=== PATIENT | male | born 1980 | race Caucasian/White ===

== ENCOUNTER 2021-04-10 18:17 | Inpatient (IN) | payer SELFPAY ==
[~2021-04-10] VITALS: Ht 177.8 cm; Wt 75.8 kg
--- NOTE | 2021-04-10 18:46 | PHYS DOC ---
Past History Past Medical History: Alcoholism, GERD, Pancreatitis Past Surgical History: No Surgical History Alcohol Use: Heavy General Adult EDM: Chief Complaint: ABDOMINAL PAIN HPI: HPI: "... I think I have any pancreatitis flare... I had a lot about the last year or so... Think about 10 ER visits mainly at ... Pain recurrent pancreatitis episodes in the last 2 years it was started because of alcohol abuse.. " Patient is a 40 year old male who presents with above hx and complaints of epigastric abdomen pain. Patient rates pain as 8-10 out of 10. Pain radiates epigastric to mid back. Similar to prior episodes of acute onset of pancreatitis. Patient did drink alcohol yesterday which he thinks it started his current bout of abdomen pain and suspect pancreatitis. Patient only follows for all his care. No history of bad food intake. No recent travel. No specific ill contacts. Did complete a Covid vaccination x1 on September on March 26. Is due for a second shot this month-with Moderna. No history of trauma. Review of Systems: Review of Systems: Constitutional: Denies fever or chills Eyes: Denies change in visual acuity HENT: Denies nasal congestion or sore throat Respiratory: Denies cough or shortness of breath Cardiovascular: Denies chest pain or edema GI: Complains of severe epigastric abdominal pain, nausea, vomiting,. Denies bloody stools or diarrhea : Denies dysuria Musculoskeletal: Denies back pain or joint pain Integument: Denies rash Neurologic: Denies headache, focal weakness or sensory changes Endocrine: Denies polyuria or polydipsia Lymphatic: Denies swollen glands Psychiatric: Denies depression or anxiety Family History: Family History: Noncontributory to presentation Current Medications: Current Meds: See Nursing for home meds Allergies: Allergies: Allergies Coded Allergies Type Severity Reaction Last Updated Verified No Known Drug Allergies 04/10/21 No Physical Exam: PE: Constitutional: in acute distress, non-toxic appearance. [] HENT: Normocephalic, atraumatic, bilateral external ears normal, oropharynx moist, no oral exudates, nose normal. [] Eyes: PERRLA, EOMI, conjunctiva normal, no discharge. [] Neck: Normal range of motion, no tenderness, supple, no stridor. [] Cardiovascular: Tachycardia heart rate regular rhythm, no murmur [] Lungs & Thorax: Bilateral breath sounds equal apex with scattered wheezes on auscultation [] Abdomen: Bowel sounds normal, soft, epigastric tenderness, no masses, no pulsatile masses. Rebound epigastric Skin: Warm, dry, no erythema, no rash. [] Back: No tenderness, no CVA tenderness. [] Extremities: No tenderness, no cyanosis, no clubbing, ROM intact, no edema. No cording appreciated Neurologic: Alert and oriented X 3, normal motor function, normal sensory function, no focal deficits noted. [] Psychologic: Affect anxious, judgement normal, mood normal. [] Current Patient Data: Vital Signs: Vital Signs Date Time Temp Pulse Resp B/P (MAP) Pulse Ox O2 Delivery O2 Flow Rate FiO2 04/10/21 18:36 98.5 109 16 131/97 97 Room Air EKG: EKG: [] Radiology/Procedures: Radiology/Procedures: [][address] [address] IMAGING REPORT Signed PATIENT: BROOKS DURÁN ACCOUNT: [id number] : 1980 LOCATION: ER AGE: 40 SEX: M EXAM STATUS: REG ER ORD. PHYSICIAN: RUKHSANA CYR MD REASON: Abdomen pain, nausea, Hx. pancreatitis Omni 300 75cc PROCEDURE: CT ABD PELV W/ORAL&IV CONTRAST Exam: CT abdomen and pelvis with contrast INDICATION: Abdominal pain, nausea TECHNIQUE: Sequential axial images through the abdomen and pelvis obtained witho ut IV contrast. Sagittal and coronal reformatted images were reconstructed from the axial data and reviewed. Exposure: One or more of the following in the visualized dose reduction techniques were utilized for this examination: 1. Automated exposure control 2. Adjustment of the MA and/or KV according to patient size 3. Use of iterative of reconstructive technique Comparisons: None FINDINGS: Heart size is normal. No pericardial effusion. Visualized lung bases are clear. No pleural effusion. Mild diffuse hepatic steatosis. Spleen, gallbladder and adrenals are unremarkable. There is numerous calcifications within the pancreas with mild adjacent fat stranding. Kidneys demonstrate symmetric enhancement. No perinephric inflammation or hydronephrosis. No renal or ureteral calculi are identified. Bladder is partially distended and not well evaluated. Prostate is not enlarged. Large and small bowel are unremarkable. Appendix is normal. No free abdominal air or fluid. No obstruction. Abdominal aorta has normal course and caliber. Abdominal vasculature is patent. No enlarged abdominal lymph nodes are identified. No suspicious osseous lesions or acute fractures. IMPRESSION: 1. Findings likely related to acute on chronic pancreatitis. No peripancreatic fluid collection. 2. Mild diffuse hepatic steatosis. Electronically signed by: Harshil Lowry MD (04/10/2021 8:13 PM) [facility] DICTATED AND SIGNED BY: HARSHIL LOWRY MD DATE: 04/10/212007 CC: RUKHSANA CYR MD; PCP,NO ~MTH0 0 Heart Score: C/O Chest Pain: N/A Risk Factors: Risk Factors: DM, Current or recent (<one month) smoker, HTN, HLP, family history of CAD, obesity. Risk Scores: Score 0 - 3: 2.5% MACE over next 6 weeks - Discharge Home Score 4 - 6: 20.3% MACE over next 6 weeks - Admit for Clinical Observation Score 7 - 10: 72.7% MACE over next 6 weeks - Early Invasive Strategies Course & Med Decision Making: Course & Med Decision Making Pertinent Labs and Imaging studies reviewed. (See chart for details) Discussed presentation, testing and treatment plan with Will admit for further pain control and hydration. Impression: 1. Abdomen pain 2. Hx. Pancreatitis- Acute on Chronic-exacerbation 3. Alcohol Abuse 138 [] Dragon Disclaimer: Dragon Disclaimer: This electronic medical record was generated, in whole or in part, using a voice recognition dictation system. Departure Departure: Referrals: PCP,NO (PCP) Shaneka Disclaimer This chart was dictated in whole or in part using Voice Recognition software in a busy, high-work load, and often noisy Emergency Department environment. It may contain unintended and wholly unrecognized errors or omissions. RUKHSANA CYR MD Apr 10, 2021 18:46
[2021-04-10] MEDS ORDERED: IOHEXOL 300 MG/ML 75 ML VIAL. IV ONE (19:00)
[2021-04-10] MEDS ORDERED: ONDANSETRON PF 4 MG/2 ML VIAL. IVP ONE (19:00)
[2021-04-10] MEDS ORDERED: FAMOTIDINE 20 MG/2 ML VIAL IVP ONE (19:00)
[2021-04-10] MEDS ORDERED: MORPHINE SULFATE 10 MG/ML SYRINGE. SQ ONE ×2 (19:00→21:15)
[2021-04-10] MEDS ORDERED: IV RINGERS SOLUTION,LACTATED 1,000 ML IV SCH (19:00)
[2021-04-10] MEDS ORDERED: KETOROLAC 30 MG/ML VIAL. IVP ONE (19:00)
[2021-04-10] MEDS ORDERED: IOHEXOL 240 MG/ML 50ML VIAL. ONE (19:01)
[2021-04-10 19:17] LABS: BASO # 0.1 x10^3/uL (0.0-0.2); BASO % 1 % (0-3); EOS # 0.1 x10^3/uL (0.0-0.7); EOS % 1 % (0-3); HEMATOCRIT 46.1 % (39.0-53.0); HEMOGLOBIN 15.7 g/dL (13.0-17.5); LYMPH # 1.8 x10^3/uL (1.0-4.8); LYMPH % 16 % (24-48); MEAN CORPUSCULAR HEMOGLOBIN 33 pg (25-35); MEAN CORPUSCULAR HGB CONC 34 g/dL (31-37); MEAN CORPUSCULAR VOLUME 96 fL (79-100); MONO # 0.7 x10^3/uL (0.0-1.1); MONO % 6 % (0-9); NEUT # 8.6 x10^3uL (1.8-7.7); NEUT % 76 % (31-73); PLATELET COUNT 260 x10^3/uL (140-400); RED BLOOD COUNT 4.81 x10^6/uL (4.30-5.70); RED CELL DISTRIBUTION WIDTH 15.1 % (11.5-14.5); WHITE BLOOD COUNT 11.3 x10^3/uL (4.0-11.0)
--- NOTE | 2021-04-10 19:18 | RAD ---
INDICATION: Reason: Abdomen pain, n/v, hx pancreatitis / Spl. Instructions: / History: COMPARISON: None. IMPRESSION: 3 views of the chest and abdomen obtained. No focal airspace consolidation to suggest pneumonia. Card iac silhouette is unremarkable. There is some degenerative changes the spine. Degenerative changes of the hips. Ossific density seen adjacent to the left hip with chronic appearance. Nonspecific bowel g as pattern with a couple of mildly prominent loops of air-filled small bowel seen measuring up to abo ut 31 mm. There is some high density foci projecting over the upper abdomen which could be from pancr eatic calcifications with one possible cause including sequela of chronic pancreatitis. Also possible that this is secondary to calcifications within the soft tissues or bowel content. Electronically signed by: Bobby Payne MD (04/10/2021 7:16 PM) [id number]
[2021-04-10 19:30] LABS: CALCIUM 8.5 mg/dL (8.5-10.1); CREATININE 0.7 mg/dL (0.7-1.3); GFR 124.9; POTASSIUM 4.7 mmol/L (3.5-5.1)
[2021-04-10 19:37] LABS: ALBUMIN 3.5 g/dL (3.4-5.0); DIRECT BILIRUBIN 0.1 mg/dL (0.0-0.2); TOTAL BILIRUBIN 0.6 mg/dL (0.2-1.0); TOTAL PROTEIN 7.4 g/dL (6.4-8.2)
[2021-04-10 19:59] LABS: BARBITURATES NEG (NEG); BENZODIAZEPINES NEG (NEG); CANNABINOIDS POS (NEG); COCAINE NEG (NEG); METHADONE NEG (NEG); OPIATES NEG (NEG); PHENCYCLIDINE NEG (NEG)
[2021-04-10 20:09] LABS: AMPHETAMINE/METHAMPHETAMINE NEG (NEG)
--- NOTE | 2021-04-10 20:16 | RAD ---
Exam: CT abdomen and pelvis with contrast INDICATION: Abdominal pain, nausea TECHNIQUE: Sequential axial images through the abdomen and pelvis obtained without IV contrast. Sagit cadecne and coronal reformatted images were reconstructed from the axial data and reviewed. Exposure: One or more of the following in the visualized dose reduction techniques were utilized for this examination: 1. Automated exposure control 2. Adjustment of the MA and/or KV according to patient size 3. Use of iterative of reconstructive technique Comparisons: None FINDINGS: Heart size is normal. No pericardial effusion. Visualized lung bases are clear. No pleural effusion. Mild diffuse hepatic steatosis. Spleen, gallbladder and adrenals are unremarkable. There is numerous calcifications within the pancreas with mild adjacent fat stranding. Kidneys demonstrate symmetric enhancement. No perinephric inflammation or hydronephrosis. No renal or ureteral calculi are identified. Bladder is partially distended and not well evaluated. Prostate is not enlarged. Large and small bowel are unremarkable. Appendix is normal. No free abdominal air or fluid. No obstru ction. Abdominal aorta has normal course and caliber. Abdominal vasculature is patent. No enlarged abdominal lymph nodes are identified. No suspicious osseous lesions or acute fractures. IMPRESSION: 1. Findings likely related to acute on chronic pancreatitis. No peripancreatic fluid collection. 2. Mild diffuse hepatic steatosis. Electronically signed by: Harshil Grier MD (04/10/2021 8:13 PM) [facility]
[2021-04-10 20:28] LABS: CLARITY,URINE CLEAR; COLOR,URINE YELLOW
[2021-04-10 20:29] LABS: BACTERIA,URINE 0 /HPF (0-FEW); BILIRUBIN,URINE NEG (NEG); GLUCOSE,URINE NEG (NEG); NITRITE,URINE NEG (NEG); RBC,URINE 0 /HPF (0-2); UROBILINOGEN,URINE 0.2 mg/dL (0.2 mg/dL); WBC,URINE 0 /HPF (0-4)
[2021-04-10] MEDS ORDERED: ACETAMINOPHEN 325 MG TABLET PO PRN (23:15)
[2021-04-10] MEDS ORDERED: ONDANSETRON PF 4 MG/2 ML VIAL. IVP PRN (23:15)
[2021-04-10] MEDS ORDERED: SUCRALFATE 1 GM TABLET. PO ONE (23:47)
[2021-04-10] MEDS ORDERED: MULTIVITAMIN with MINERAL TABLET. ONE (23:47)
[2021-04-10] MEDS ORDERED: MAGNESIUM HYDROXIDE 2,400 MG/30 ML ORAL.SUSP. ONE (23:47)
[2021-04-10] MEDS ORDERED: FAMOTIDINE 20 MG/2 ML VIAL ONE (23:48)
[2021-04-10] MEDS: SUCRALFATE 1 GM TABLET. PO SCH (23:58)
[2021-04-10] MEDS: MORPHINE SULFATE 10 MG/ML SYRINGE. SQ PRN (23:58)
[2021-04-11] VITALS (7 sets, daily range): BP systolic 141–156; BP diastolic 91–110
[2021-04-11] MEDS: IV RINGERS SOLUTION,LACTATED 1,000 ML IV SCH ×2 (00:02→19:38)
[2021-04-11] MEDS: MORPHINE SULFATE 10 MG/ML SYRINGE. SQ PRN (03:25)
[2021-04-11] MEDS ORDERED: MORPHINE SULFATE 10 MG/ML SYRINGE. SQ ONE (03:30)
[2021-04-11 08:16] LABS: BASO # 0.1 x10^3/uL (0.0-0.2); BASO % 1 % (0-3); EOS # 0.1 x10^3/uL (0.0-0.7); EOS % 1 % (0-3); HEMATOCRIT 38.3 % (39.0-53.0); HEMOGLOBIN 13.2 g/dL (13.0-17.5); LYMPH # 1.6 x10^3/uL (1.0-4.8); LYMPH % 26 % (24-48); MEAN CORPUSCULAR HEMOGLOBIN 33 pg (25-35); MEAN CORPUSCULAR HGB CONC 35 g/dL (31-37); MEAN CORPUSCULAR VOLUME 96 fL (79-100); MONO # 0.6 x10^3/uL (0.0-1.1); MONO % 10 % (0-9); NEUT # 3.7 x10^3uL (1.8-7.7); NEUT % 61 % (31-73); PLATELET COUNT 198 x10^3/uL (140-400); WHITE BLOOD COUNT 6.1 x10^3/uL (4.0-11.0)
[2021-04-11 08:23] LABS: CALCIUM 7.9 mg/dL (8.5-10.1); CREATININE 0.8 mg/dL (0.7-1.3); GFR 107.1; POTASSIUM 3.9 mmol/L (3.5-5.1)
[2021-04-11] MEDS ORDERED: MORPHINE SULFATE 10 MG/ML SYRINGE. IV ONE ×3 (08:30→15:00)
[2021-04-11] MEDS ORDERED: MAGNESIUM HYDROXIDE 2,400 MG/30 ML ORAL.SUSP. PO SCH (09:00)
[2021-04-11] MEDS ORDERED: PRENATAL MULTIVITAMIN TABLET. PO SCH (09:00)
[2021-04-11] MEDS ORDERED: MORPHINE SULFATE 10 MG/ML SYRINGE. IV PRN (15:30)
[2021-04-11] MEDS: SUCRALFATE 1 GM TABLET. PO SCH ×2 (15:46→19:39)
[2021-04-11] MEDS: FAMOTIDINE 20 MG/2 ML VIAL IVP SCH ×2 (15:46→19:39)
[2021-04-11] MEDS ORDERED: cloNIDine HCL 0.1 MG TABLET PO PRN ×2 (19:15)
--- NOTE | 2021-04-11 19:48 | NUR ---
PT ADMITTED TO [facility] VIA EMS PRIOR TO SHIFT CHANGE. PT THEN STORMED OUT OF ROOM AND APPROACHED NURSING STATION WHERE PT STATED "I AM JUST GOING TO HEAD OUT OF HERE". CALLED. AMA PAPER WORK SIGNED. SECURITY PAGED. IV DISCONTINUED. PT AMBULATED OFF UNIT.
[2021-04-11] MEDS ORDERED: CLOBETASOL EMOLLIENT 0.05% TOPICAL CREAM 15GM TUBE. TP SCH (21:00)
--- NOTE | 2021-04-11 23:31 | HP ---
ADMIT DATE: 04/10/2021 ATTENDING PHYSICIAN: Dr. Jasmine. CHIEF COMPLAINT: Abdominal pain. HISTORY OF PRESENT ILLNESS: The patient is a 40-year-old gentleman who is a chronic alcoholic. He has had multiple episodes of pancreatitis. He has abdominal pain. He had ED workup, which showed evidence of recurrent pancreatitis. He is admitted for symptomatic control and pain control. He was given morphine and ondansetron. His last drink was 2 days prior to coming in. PAST MEDICAL HISTORY: Significant for multiple admissions. He had mainly admission to [facility]. No trauma. No recent bad food intake. He has had COVID vaccination, one time in September. CURRENT MEDICATIONS: None. ALLERGIES: No known drug allergies. SURGICAL HISTORY: None. FAMILY HISTORY: Noncontributory. REVIEW OF SYSTEMS: Significant for localized abdominal pain, nausea, and no hematemesis. All other systems were reviewed and turned out to be negative. PHYSICAL EXAMINATION: VITAL SIGNS: When I saw him, his blood pressure was 141/101, pulse 80 and regular. He was afebrile. Oxygen saturation 97% on room air. HEENT: Head is without trauma. Pupils are reactive. Sclerae nonicteric. Oropharynx is clear. NECK: Supple, no bruits identified. LUNGS: Good breath sounds. CARDIOVASCULAR: Showed regular heart tones. No gallop. ABDOMEN: Diffuse tenderness on deep palpation. There is no guarding or rebound tenderness. Bowel sounds are hypoactive. No masses palpated. EXTREMITIES: Showed no cyanosis or edema. NEUROLOGIC: Focally intact. Speech is fluent. PERTINENT LABORATORY STUDIES: His hemoglobin was 15.7 g/dL with a white count of 11,300. Chemistry panel, electrolytes within normal range. Lipase level was 280, amylase 73, creatinine 0.7 mg percent. Abdominal series and CT abdomen showed acute on chronic pancreatitis, diffuse hepatic steatosis. There are numerous calcifications within the pancreas and mild adjacent fat stranding. ASSESSMENT: 1. A 40-year-old gentleman with alcoholic pancreatitis. 2. Chronic alcoholism. 3. Abdominal pain with nausea. 4. Dehydration. 5. Essential hypertension. PLAN: 1. Admit to the inpatient unit. 2. Pain and nausea control. 3. Gentle IV hydration. 4. We will advance diet as tolerated. WILMAR/BREN/SHUBHAM DR: WILMAR/mook TID: [id number]
--- NOTE | 2021-04-12 09:02 | DS ---
DATE OF DISCHARGE: 04/11/2021 ATTENDING PHYSICIAN: Dr. Jasmine. FINAL DISCHARGE DIAGNOSES: 1. Acute pancreatitis. 2. Chronic alcoholism. 3. Chronic pain syndrome. 4. Abdominal pain with nausea. 5. Dehydration. 6. Essential hypertension. HISTORY OF PRESENT ILLNESS: The patient is a 40-year-old gentleman, chronic alcoholic, multiple episodes of pancreatitis. He is still drinking up to 2 days before he showed up in the ER. He was admitted with acute pancreatitis. I did see him down in the ED. PHYSICAL EXAMINATION: Please see the dictated note. PERTINENT LABORATORY AND X-RAY STUDIES: On the database. COURSE IN THE HOSPITAL: The patient was admitted. He was given IV hydration, pain and nausea control. He did have to wait quite a long time In the ER because of bed availability. By the time he got up to the floor, he was not happy. Shortly after coming to the floor, he left against medical advice. NILO DR: Fausto TID: [id number]
== END 2021-04-11 19:52 | disposition left against medical advice (07) | DRG 440 ==
LOC: ER 18:17 → 1 SOUTH 23:05
PROVIDERS: ADMIT Internal Medicine; ATTEND Internal Medicine
DX: K85.20 Alcohol induced acute pancreatitis without necrosis or infection (principal); K21.9 Gastro-esophageal reflux disease without esophagitis; F10.20 Alcohol dependence, uncomplicated; E86.0 Dehydration; I10 Essential (primary) hypertension; G89.4 Chronic pain syndrome; K86.1 Other chronic pancreatitis; Z53.29 Procedure and treatment not carried out because of patient's decision for other reasons; Z20.822 Contact with and (suspected) exposure to COVID-19
CPT/HCPCS: 36415; 74022; 74177; 80048; 80076; 80307; 81001; 82150; 82550; 83690; 84484; 85025; 87426; 96361; 96374; 96375; G0238; G0480; J1885; J2060; J2270; J2405; J3490; J7120; Q9967; U0003; 99285-25

== ENCOUNTER 2021-04-14 06:49 | Emergency (ER) | payer SELFPAY ==
[2021-04-11 19:39] VITALS: BP 152/110
[~2021-04-14] VITALS: Ht 177.8 cm; Wt 75.8 kg
[2021-04-14] MEDS ORDERED: ONDANSETRON PF 4 MG/2 ML VIAL. IVP ONE (07:15)
[2021-04-14] MEDS ORDERED: IV NORMAL SALINE 1,000ML 1,000 ML IV ONE (07:15)
[2021-04-14 07:29] LABS: BASO # 0.1 x10^3/uL (0.0-0.2); BASO % 1 % (0-3); EOS # 0.1 x10^3/uL (0.0-0.7); EOS % 1 % (0-3); HEMATOCRIT 45.6 % (39.0-53.0); HEMOGLOBIN 15.6 g/dL (13.0-17.5); LYMPH # 1.2 x10^3/uL (1.0-4.8); LYMPH % 18 % (24-48); MEAN CORPUSCULAR HEMOGLOBIN 33 pg (25-35); MEAN CORPUSCULAR HGB CONC 34 g/dL (31-37); MEAN CORPUSCULAR VOLUME 96 fL (79-100); MONO # 1.1 x10^3/uL (0.0-1.1); MONO % 16 % (0-9); NEUT # 4.4 x10^3uL (1.8-7.7); NEUT % 65 % (31-73); PLATELET COUNT 260 x10^3/uL (140-400); RED BLOOD COUNT 4.75 x10^6/uL (4.30-5.70); RED CELL DISTRIBUTION WIDTH 15.3 % (11.5-14.5); WHITE BLOOD COUNT 6.9 x10^3/uL (4.0-11.0)
[2021-04-14] MEDS ORDERED: MORPHINE SULFATE 4 MG/ML DISP.SYRIN. IV ONE (07:30)
[2021-04-14 07:39] LABS: CALCIUM 8.9 mg/dL (8.5-10.1); CREATININE 0.8 mg/dL (0.7-1.3); GFR 107.1; POTASSIUM 4.1 mmol/L (3.5-5.1)
--- NOTE | 2021-04-14 07:40 | PHYS DOC ---
Past History Past Medical History: Alcoholism, GERD, Pancreatitis Past Surgical History: No Surgical History Alcohol Use: Heavy General Adult EDM: Chief Complaint: ABDOMINAL PAIN HPI: HPI: 40-year-old male presents with epigastric abdominal pain and vomiting. The patient has chronic pancreatitis. He did drink alcohol yesterday. He has poor pain his morning so he came emergency room. Patient was recently in this emergency room for pancreatitis admitted to the hospital. He reportedly left as soon as he got a hospital bed. Patient denies fever or chills. He has no other complaints. Review of Systems: Review of Systems: Constitutional: Denies fever or chills Eyes: Denies change in visual acuity HENT: Denies nasal congestion or sore throat Respiratory: Denies cough or shortness of breath Cardiovascular: Denies chest pain or edema GI: Epigastric abdominal pain, nausea, vomiting.Denies bloody stools or diarrhea : Denies dysuria Musculoskeletal: Denies back pain or joint pain Integument: Denies rash Neurologic: Denies headache, focal weakness or sensory changes Endocrine: Denies polyuria or polydipsia Lymphatic: Denies swollen glands Psychiatric: Denies depression or anxiety Current Medications: Current Meds: Current Medications Medications (Trade) Dose Ordered Sig/Mitesh Start Time Stop Time Status Last Admin Dose Admin Morphine Sulfate (Morphine 4mg Syringe) 4 mg 1X ONCE 04/14/21 07:30 04/14/21 07:36 DC Ondansetron HCl (Zofran) 4 mg 1X ONCE 04/14/21 07:15 04/14/21 07:36 DC Sodium Chloride 1,000 ml @ 1,000 mls/hr 1X ONCE 04/14/21 07:15 04/14/21 08:14 Allergies: Allergies: Allergies Coded Allergies Type Severity Reaction Last Updated Verified No Known Drug Allergies 04/10/21 No Physical Exam: PE: Constitutional: Well developed, well nourished, no acute distress, non-toxic appearance. [] HENT: Normocephalic, atraumatic, bilateral external ears normal, oropharynx moist, no oral exudates, nose normal. [] Eyes: PERRLA, EOMI, conjunctiva normal, no discharge. [] Neck: Normal range of motion, no tenderness, supple, no stridor. [] Cardiovascular:Heart rate regular rhythm, no murmur [] Lungs & Thorax: Bilateral breath sounds clear to auscultation [] Abdomen: Bowel sounds normal, soft, epigastric tenderness, no masses, no pulsatile masses. [] Skin: Warm, dry, no erythema, no rash. [] Back: No tenderness, no CVA tenderness. [] Extremities: No tenderness, no cyanosis, no clubbing, ROM intact, no edema. [] Neurologic: Alert and oriented X 3, normal motor function, normal sensory function, no focal deficits noted. [] Psychologic: Affect normal, judgement normal, mood normal. [] Current Patient Data: Labs: Laboratory Tests Test 04/14/21 07:13 White Blood Count 6.9 x10^3/uL (4.0-11.0) Red Blood Count 4.75 x10^6/uL (4.30-5.70) Hemoglobin 15.6 g/dL (13.0-17.5) Hematocrit 45.6 % (39.0-53.0) Mean Corpuscular Volume 96 fL (79-100) Mean Corpuscular Hemoglobin 33 pg (25-35) Mean Corpuscular Hemoglobin Concent 34 g/dL (31-37) Red Cell Distribution Width 15.3 % (11.5-14.5) H Platelet Count 260 x10^3/uL (140-400) Neutrophils (%) (Auto) 65 % (31-73) Lymphocytes (%) (Auto) 18 % (24-48) L Monocytes (%) (Auto) 16 % (0-9) H Eosinophils (%) (Auto) 1 % (0-3) Basophils (%) (Auto) 1 % (0-3) Neutrophils # (Auto) 4.4 x10^3uL (1.8-7.7) Lymphocytes # (Auto) 1.2 x10^3/uL (1.0-4.8) Monocytes # (Auto) 1.1 x10^3/uL (0.0-1.1) Eosinophils # (Auto) 0.1 x10^3/uL (0.0-0.7) Basophils # (Auto) 0.1 x10^3/uL (0.0-0.2) Vital Signs: Vital Signs Date Time Temp Pulse Resp B/P (MAP) Pulse Ox O2 Delivery O2 Flow Rate FiO2 04/14/21 06:55 97.9 95 16 159/112 96 Room Air EKG: EKG: [] Radiology/Procedures: Radiology/Procedures: [] Heart Score: C/O Chest Pain: N/A Risk Factors: Risk Factors: DM, Current or recent (<one month) smoker, HTN, HLP, family history of CAD, obesity. Risk Scores: Score 0 - 3: 2.5% MACE over next 6 weeks - Discharge Home Score 4 - 6: 20.3% MACE over next 6 weeks - Admit for Clinical Observation Score 7 - 10: 72.7% MACE over next 6 weeks - Early Invasive Strategies Course & Med Decision Making: Course & Med Decision Making Pertinent Labs and Imaging studies reviewed. (See chart for details) The patient's labs remarkable for elevated liver enzymes. His lipase is normal. I have given him morphine and Dilaudid. He has a long history of in the [employer] narcotic database of high-dose narcotic prescriptions. He does not denisse ear to have acute pancreatitis. He is stable for discharge at this time. I advised patient to stop drinking alcohol completely forever. [] Shaneka Disclaimer: Dragdeanna Disclaimer: This electronic medical record was generated, in whole or in part, using a voice recognition dictation system. Departure Departure: Impression: Primary Impression: Chronic pancreatitis due to acute alcohol intoxication Disposition: 01 HOME / SELF CARE / HOMELESS Condition: STABLE Referrals: PCP,NO (PCP) Patient Instructions: Acute Pancreatitis, [id number] DARRELL KENDALL DO Apr 14, 2021 07:40
[2021-04-14 07:45] LABS: ALBUMIN 3.4 g/dL (3.4-5.0); ALBUMIN/GLOBULIN RATIO 0.8 (1.0-1.7); TOTAL BILIRUBIN 0.9 mg/dL (0.2-1.0); TOTAL PROTEIN 7.9 g/dL (6.4-8.2)
[2021-04-14] MEDS ORDERED: HYDROmorphone PF 1 MG/ML DISP.SYRIN IVP ONE (08:15)
[2021-04-14] MEDS ORDERED: diphenhydrAMINE 50 MG/ML VIAL IVP ONE (08:15)
[2021-04-14] MEDS ORDERED: diphenhydrAMINE 50 MG/ML VIAL ONE (08:38)
== END 2021-04-14 10:08 | disposition home or self-care (01) ==
LOC: ER 06:49
DX: K86.0 Alcohol-induced chronic pancreatitis (principal); F10.229 Alcohol dependence with intoxication, unspecified; K21.9 Gastro-esophageal reflux disease without esophagitis; Y90.9 Presence of alcohol in blood, level not specified
CPT/HCPCS: 36415; 80053; 83690; 85025; 96361; 96374; 96375; 99284; J1170; J1200; J2270; J2405; J7030

== ENCOUNTER 2021-04-17 19:27 | Emergency (ER) | payer SELFPAY ==
[~2021-04-17] VITALS: Ht 177.8 cm; Wt 75.8 kg
[2021-04-17] MEDS ORDERED: ONDANSETRON PF 4 MG/2 ML VIAL. IVP ONE (20:45)
[2021-04-17] MEDS ORDERED: IV RINGERS SOLUTION,LACTATED 1,000 ML IV ONE (20:45)
[2021-04-17] MEDS ORDERED: FAMOTIDINE 20 MG/2 ML VIAL IVP ONE (20:45)
[2021-04-17 21:29] LABS: BASO % 1 % (0-3); EOS # 0.1 x10^3/uL (0.0-0.7); EOS % 1 % (0-3); HEMOGLOBIN 13.9 g/dL (13.0-17.5); LYMPH # 1.1 x10^3/uL (1.0-4.8); LYMPH % 15 % (24-48); MEAN CORPUSCULAR HEMOGLOBIN 33 pg (25-35); MEAN CORPUSCULAR HGB CONC 34 g/dL (31-37); MEAN CORPUSCULAR VOLUME 97 fL (79-100); MONO # 0.9 x10^3/uL (0.0-1.1); MONO % 12 % (0-9); NEUT # 5.5 x10^3uL (1.8-7.7); NEUT % 72 % (31-73); PLATELET COUNT 274 x10^3/uL (140-400); RED BLOOD COUNT 4.23 x10^6/uL (4.30-5.70); RED CELL DISTRIBUTION WIDTH 14.6 % (11.5-14.5); WHITE BLOOD COUNT 7.7 x10^3/uL (4.0-11.0)
[2021-04-17 21:36] LABS: CALCIUM 8.8 mg/dL (8.5-10.1); CREATININE 0.7 mg/dL (0.7-1.3); GFR 124.9; POTASSIUM 3.7 mmol/L (3.5-5.1)
[2021-04-17 21:41] LABS: ALBUMIN 3.3 g/dL (3.4-5.0); ALBUMIN/GLOBULIN RATIO 0.9 (1.0-1.7); TOTAL BILIRUBIN 0.7 mg/dL (0.2-1.0); TOTAL PROTEIN 6.9 g/dL (6.4-8.2)
--- NOTE | 2021-04-17 22:03 | PHYS DOC ---
Past History Past Medical History: Alcoholism, GERD, Pancreatitis (FLORES LUTHER) Past Surgical History: No Surgical History (FLORES LUTHER) Alcohol Use: Heavy (FLORES LUTHER) General Adult EDM: Chief Complaint: ABDOMINAL PAIN Problems: (1) Abdominal pain (FLORES LUTHER) HPI: HPI: Patient is a 40 year old male with history of alcoholism and pancreatitis who presents with abdominal pain, nausea, vomiting, diarrhea for the past few days. Patient states he visited the emergency department 3 days ago for the same complaints. He he states he was discharged home because his "enzymes were not high enough to stay." He rates his pain 9/10 in his central abdomen radiating to his back and describes as throbbing in nature. He states that his heart feels like it is racing, because he is "detoxing" from alcohol. Patient denies blood in his emesis or stool. He denies chest pain, shortness of breath, cough, dysuria, hematuria. Patient has no other complaints at this time (FLORES LUTHER) Review of Systems: Review of Systems: ROS negative except as mentioned in HPI. (FLORES LUTHER) Current Medications: Current Meds: Current Medications Medications (Trade) Dose Ordered Sig/Mitesh Start Time Stop Time Status Last Admin Dose Admin Famotidine (Pepcid Vial) 20 mg 1X ONCE 04/17/21 20:45 04/17/21 20:57 DC 04/17/21 20:52 20 MG Fentanyl Citrate (Fentanyl 2ml Vial) 50 mcg 1X ONCE 04/17/21 22:00 04/17/21 22:01 Lactated Ringer's 1,000 ml @ 0 mls/hr 1X ONCE 04/17/21 20:45 04/17/21 20:57 DC 04/17/21 20:52 1,000 MLS/HR Ondansetron HCl (Zofran) 8 mg 1X ONCE 04/17/21 20:45 04/17/21 20:57 DC 04/17/21 20:53 8 MG (FLORES LUTHER) Allergies: Allergies: Allergies Coded Allergies Type Severity Reaction Last Updated Verified No Known Drug Allergies 04/10/21 No (FLORES LUTHER) Physical Exam: PE: Constitutional: Patient is hunched over in the bed, holding his abdomen with his arm. He is in moderate distress secondary to pain. Well developed, well nourished, non-toxic appearance. [] Cardiovascular: Heart rate regular rhythm, no murmur [] Lungs & Thorax: Bilateral breath sounds clear to auscultation [] Abdomen: Abdomen is diffusely tender in the upper 2 quadrants. Bowel sounds normal, soft, no masses, no pulsatile masses. [] Skin: Diaphoretic. Warm, no erythema, no rash. [] Back: No tenderness, no CVA tenderness. [] Extremities: No tenderness, no cyanosis, no clubbing, ROM intact, no edema. [] Neurologic: Alert and oriented X 3, normal motor function, normal sensory function, no focal deficits noted. [] (FLORES LUTHER) Current Patient Data: Labs: Laboratory Tests Test 04/17/21 21:10 White Blood Count 7.7 x10^3/uL (4.0-11.0) Red Blood Count 4.23 x10^6/uL (4.30-5.70) Hemoglobin 13.9 g/dL (13.0-17.5) Hematocrit 41.0 % (39.0-53.0) Mean Corpuscular Volume 97 fL (79-100) Mean Corpuscular Hemoglobin 33 pg (25-35) Mean Corpuscular Hemoglobin Concent 34 g/dL (31-37) Red Cell Distribution Width 14.6 % (11.5-14.5) Platelet Count 274 x10^3/uL (140-400) Neutrophils (%) (Auto) 72 % (31-73) Lymphocytes (%) (Auto) 15 % (24-48) Monocytes (%) (Auto) 12 % (0-9) Eosinophils (%) (Auto) 1 % (0-3) Basophils (%) (Auto) 1 % (0-3) Neutrophils # (Auto) 5.5 x10^3uL (1.8-7.7) Lymphocytes # (Auto) 1.1 x10^3/uL (1.0-4.8) Monocytes # (Auto) 0.9 x10^3/uL (0.0-1.1) Eosinophils # (Auto) 0.1 x10^3/uL (0.0-0.7) Basophils # (Auto) 0.0 x10^3/uL (0.0-0.2) Sodium Level 140 mmol/L (136-145) Potassium Level 3.7 mmol/L (3.5-5.1) Chloride Level 104 mmol/L (98-107) Carbon Dioxide Level 25 mmol/L (21-32) Anion Gap 11 (6-14) Blood Urea Nitrogen 7 mg/dL (8-26) Creatinine 0.7 mg/dL (0.7-1.3) Estimated GFR (Cockcroft-Gault) 124.9 BUN/Creatinine Ratio 10 (6-20) Glucose Level 161 mg/dL (70-99) Calcium Level 8.8 mg/dL (8.5-10.1) Total Bilirubin 0.7 mg/dL (0.2-1.0) Direct Bilirubin 0.2 mg/dL (0.0-0.2) Aspartate Amino Transf (AST/SGOT) 20 U/L (15-37) Alanine Aminotransferase (ALT/SGPT) 41 U/L (16-63) Alkaline Phosphatase 364 U/L (46-116) Total Protein 6.9 g/dL (6.4-8.2) Albumin 3.3 g/dL (3.4-5.0) Albumin/Globulin Ratio 0.9 (1.0-1.7) Lipase 313 U/L (73-393) Ethyl Alcohol Level < 10 mg/dL (0-10) (FLORES LUTHER) EKG: EKG: [] (FLORES LUTHER) Radiology/Procedures: Radiology/Procedures: [] (FLORES LUTHER) Heart Score: C/O Chest Pain: No (FLORES LUTHER) Course & Med Decision Making: Course & Med Decision Making Pertinent Labs and Imaging studies reviewed. (See chart for details) Discussing pain control options with the patient, he reports that morphine does not alleviate his pain usually and requested Dilaudid. With the patient I agreed to try fentanyl, as he said that is has helped his pain in the past. After the patient's pain is controlled, going to a rehabilitation or detox facility was discussed with the patient and his chiropractor assistant. He agrees that that is the sort of treatment that he needs at this point in time. Patient requested Ativan from nursing staff. Due to alcohol withdrawal, I found it to be a reasonable request. Patient's girlfriend is no longer at bedside. On revisit, patient states that he threw up his Ativan pill, however there was minimal vomitus in the blue bag at bedside. I then discussed discharge home with plans to go to rehab versus admission for intractable pain with the patient. He states he is still in too much pain to go home or make it to the rehab facility. I will attempt a low dose of IM morphine and IV lorazepam, so that it will not be thrown up again. Patient appears significantly improved, and states he feels improved as well. He is no longer diaphoretic and is no longer retching. His girlfriend is on her way back, so when she arrives we will discuss the treatment plan with her as well. (FLORES LUTHER) Dragon Disclaimer: Dragon Disclaimer: This electronic medical record was generated, in whole or in part, using a voice recognition dictation system. (FLORES LUTHER) Departure Departure: Impression: Primary Impression: Alcohol withdrawal Qualified Codes: F10.230 - Alcohol dependence with withdrawal, uncomplicated Disposition: HOME / SELF CARE / HOMELESS Condition: STABLE Referrals: PCP,NO (PCP) Patient Instructions: Alcohol Withdrawal, [id number] Additional Instructions: [employer]. is available 03/03. Phone number: [phone] address: [address] [place] [id number] [address] Ondansetron (ONDANSETRON ODT) 4 Mg Tab.rapdis 1 TAB PO PRN Q6-8HRS for nausea, #16 TAB Take 1 tablet by mouth every 6-8 hours as needed for pain. Be sure to take at least 20 minutes prior to any other medications by mouth. Prov: FLORES LUTHER 04/18/21 Lorazepam (ATIVAN) 1 Mg Tablet 1 MG PO 1-2XD for alcohol withdrawal, #6 TAB Take 1 tablet by mouth at night to sleep. May take 2 if necessary. Prov: FLORES LUTHER 04/18/21 FLORES LUTHER Apr 17, 2021 22:03 RUKHSANA CYR MD Apr 20, 2021 18:21
[2021-04-17] MEDS ORDERED: LORazepam 1 MG TABLET PO ONE (23:15)
[2021-04-18] MEDS ORDERED: MORPHINE SULFATE 2 MG/ML DISP.SYRIN. IM ONE
[2021-04-18 00:31] VITALS: BP 143/90
[2021-04-18] MEDS ORDERED: LORA-254 PO (01:08)
[2021-04-18] MEDS ORDERED: ONDA4TAB12 PO (01:08)
== END 2021-04-18 01:15 | disposition home or self-care (01) ==
LOC: ER 19:27
DX: F10.239 Alcohol dependence with withdrawal, unspecified (principal); R11.2 Nausea with vomiting, unspecified; R19.7 Diarrhea, unspecified; R10.84 Generalized abdominal pain; K21.9 Gastro-esophageal reflux disease without esophagitis; Y90.0 Blood alcohol level of less than 20 mg/100 ml
CPT/HCPCS: 36415; 80053; 82248; 83690; 85025; 96361; 96372; 96374; 96375; 96376; 99285; G0480; J2060; J2270; J2405; J3010; J3490; J7120

== ENCOUNTER 2021-04-29 11:10 | Emergency (ER) | payer SELFPAY ==
[~2021-04-29] VITALS: Ht 177.8 cm; Wt 71.5 kg
[~2021-04-29 11:10] MED LIST: LORA-254 PO; ONDA4TAB12 PO
[2021-04-29] MEDS ORDERED: ONDANSETRON PF 4 MG/2 ML VIAL. IVP ONE (11:30)
[2021-04-29] MEDS ORDERED: IV NORMAL SALINE 1,000ML 1,000 ML IV SCH (11:30)
[2021-04-29 11:42] LABS: BASO # 0.1 x10^3/uL (0.0-0.2); BASO % 1 % (0-3); EOS % 0 % (0-3); HEMOGLOBIN 16.6 g/dL (13.0-17.5); LYMPH # 1.9 x10^3/uL (1.0-4.8); LYMPH % 25 % (24-48); MEAN CORPUSCULAR HEMOGLOBIN 33 pg (25-35); MEAN CORPUSCULAR HGB CONC 35 g/dL (31-37); MEAN CORPUSCULAR VOLUME 96 fL (79-100); MONO # 0.6 x10^3/uL (0.0-1.1); MONO % 8 % (0-9); NEUT # 5.1 x10^3uL (1.8-7.7); NEUT % 66 % (31-73); PLATELET COUNT 438 x10^3/uL (140-400); RED BLOOD COUNT 4.98 x10^6/uL (4.30-5.70); RED CELL DISTRIBUTION WIDTH 14.6 % (11.5-14.5); WHITE BLOOD COUNT 7.8 x10^3/uL (4.0-11.0)
[2021-04-29] MEDS ORDERED: IOHEXOL 300 MG/ML 75 ML VIAL. IV ONE (11:45)
[2021-04-29 11:46] LABS: CALCIUM 9.1 mg/dL (8.5-10.1); CREATININE 0.9 mg/dL (0.7-1.3); GFR 93.5; POTASSIUM 4.4 mmol/L (3.5-5.1)
--- NOTE | 2021-04-29 11:49 | PHYS DOC ---
Past History Past Medical History: Alcoholism, GERD, Pancreatitis (JANET LONDONO APRN) Past Surgical History: No Surgical History (JANET LONDOON APRN) Alcohol Use: None (JANET LONDONO APRN) General Adult EDM: Chief Complaint: ABDOMINAL PAIN HPI: HPI: Patient is a 40-year-old male who presents to the ER with epigastric pain that started last night. He rates the pain 9 out of 10. He describes it as a stabbing pain. No treatment prior to arrival. Patient is reporting nausea and vomiting. States that there is occasionally blood in his vomit. He denies any diarrhea, fevers. Patient has a history of alcoholism and pancreatitis. Patient states that he drank half of 1/5 of liquor yesterday. (JANET LONDONO APRN) Review of Systems: Review of Systems: 14 body systems of the review of systems have been reviewed. See HPI for pertinent positive and negative responses, otherwise all other systems are negative, nonpertinent or noncontributory (JANET LONDONO APRN) Current Medications: Current Meds: Current Medications Medications (Trade) Dose Ordered Sig/Mitesh Start Time Stop Time Status Last Admin Dose Admin Fentanyl Citrate (Fentanyl 2ml Vial) 50 mcg PRN Q15MIN PRN 04/29/21 11:30 04/30/21 11:29 Iohexol (Omnipaque 300 Mg/ml) 75 ml 1X ONCE 04/29/21 11:45 04/29/21 11:46 DC Ondansetron HCl (Zofran) 4 mg 1X ONCE 04/29/21 11:30 04/29/21 11:31 DC Sodium Chloride 1,000 ml @ 1,000 mls/hr Q1H 04/29/21 11:30 04/29/21 12:29 (JANET LONDONO APRN) Allergies: Allergies: Allergies Coded Allergies Type Severity Reaction Last Updated Verified No Known Drug Allergies 04/10/21 No (JANET LONDONO APRN) Physical Exam: PE: Constitutional: Well developed, well nourished, no acute distress, non-toxic appearance. [] HENT: Normocephalic, atraumatic, bilateral external ears normal, oropharynx moist, no oral exudates, nose normal. [] Eyes: PERRLA, EOMI, conjunctiva normal, no discharge. [] Neck: Normal range of motion, no stridor Cardiovascular:Heart rate tachycardic rhythm, no murmur [] Lungs & Thorax: Bilateral breath sounds clear to auscultation [] Abdomen: Bowel sounds normal, soft, epigastric tenderness with palpation,, no masses, no pulsatile masses. [] Skin: Warm, dry, no erythema, no rash. [] Back: Normal range of motion Extremities: No tenderness, no cyanosis, no clubbing, ROM intact, no edema. [] Neurologic: Alert and oriented X 3, normal motor function, normal sensory function, no focal deficits noted. [] Psychologic: Affect normal, judgement normal, mood normal. [] (JANET LONDONO APRN) Current Patient Data: Labs: Laboratory Tests Test 04/29/21 11:25 White Blood Count 7.8 x10^3/uL (4.0-11.0) Red Blood Count 4.98 x10^6/uL (4.30-5.70) Hemoglobin 16.6 g/dL (13.0-17.5) Hematocrit 48.0 % (39.0-53.0) Mean Corpuscular Volume 96 fL (79-100) Mean Corpuscular Hemoglobin 33 pg (25-35) Mean Corpuscular Hemoglobin Concent 35 g/dL (31-37) Red Cell Distribution Width 14.6 % (11.5-14.5) H Platelet Count 438 x10^3/uL (140-400) H Neutrophils (%) (Auto) 66 % (31-73) Lymphocytes (%) (Auto) 25 % (24-48) Monocytes (%) (Auto) 8 % (0-9) Eosinophils (%) (Auto) 0 % (0-3) Basophils (%) (Auto) 1 % (0-3) Neutrophils # (Auto) 5.1 x10^3uL (1.8-7.7) Lymphocytes # (Auto) 1.9 x10^3/uL (1.0-4.8) Monocytes # (Auto) 0.6 x10^3/uL (0.0-1.1) Eosinophils # (Auto) 0.0 x10^3/uL (0.0-0.7) Basophils # (Auto) 0.1 x10^3/uL (0.0-0.2) Vital Signs: Vital Signs Date Time Temp Pulse Resp B/P (MAP) Pulse Ox O2 Delivery O2 Flow Rate FiO2 04/29/21 11:27 98.3 100 20 159/92 (114) 98 Room Air (JANET LONDONO APRN) EKG: EKG: EKG performed by ER staff at 1143 shows sinus rhythm with some T wave inversions, no STEMI read by Dr. Mueller at 1151 (JANET LONDONO APRN) Radiology/Procedures: Radiology/Procedures: PROCEDURE: CT ABD PELV W/ IV CONTRST ONLY CT ABDOMEN+PELVIS W History: History of pancreatitis. Epigastric pain. Comparison: CT abdomen and pelvis 04/10/2021 Technique: CT abdomen and pelvis with intravenous contrast Findings: The lung bases are clear. Visualized heart is unremarkable. The liver, gallbladder, spleen, adrenals, and kidneys are unremarkable. Pancreatic atrophy with innumerable tiny calcifications in the head, uncinate and body. Atrophic body and tail. Fat stranding adjacent to the pancreatic head and uncinate. No discrete peripancreatic fluid collections. Stomach is well distended. There is wall thickening of the duodenum likely related to adjacent inflammatory changes in the pancreatic head. Small bowel is otherwise unremarkable. Normal appendix. Unremarkable colon. No adenopathy. Minimal aortic calcification. Bladder and prostate are unremarkable. Soft tissues are within normal limits. No acute findings in the spine and skeletal structures. Impression: 1. Evidence of chronic pancreatitis and atrophy with peripancreatic head edema consistent with superimposed acute pancreatitis. No abscess or pseudocyst identified. ------ Exposure: One or more of the following individualized dose reduction techniques were utilized for this examination: 1. Automated exposure control 2. Adjustment of the mA and/or kV according to patient size 3. Use of iterative reconstruction technique. Electronically signed by: Buck Bertrand MD (04/29/2021 12:29 PM) [id number] DICTATED AND SIGNED BY: BUCK BERTRAND MD DATE: 04/29/21 1216 CC: SILAS MUELLER DO; JANET LONDONO APRN; PCP,NO ~MTH0 0 [] (JANET LONDONO APRN) Heart Score: C/O Chest Pain: No Risk Factors: Risk Factors: DM, Current or recent (<one month) smoker, HTN, HLP, family history of CAD, obesity. Risk Scores: Score 0 - 3: 2.5% MACE over next 6 weeks - Discharge Home Score 4 - 6: 20.3% MACE over next 6 weeks - Admit for Clinical Observation Score 7 - 10: 72.7% MACE over next 6 weeks - Early Invasive Strategies (JANET LONDONO APRN) Course & Med Decision Making: Course & Med Decision Making Pertinent Labs and Imaging studies reviewed. (See chart for details) [] Patient is a 40-year-old male with a history of alcoholic pancreatitis who presents to the ER with epigastric pain along with nausea and vomiting. Work-up in the ER consisted of blood work, urinalysis and CT scan of abdomen. Patient treated with fluids, nausea medication and pain medication. Patient kept n.p.o. patient was noted to have a lipase of 419, this is not 3 times the upper limit. CT scan of abdomen showed chronic with superimposed acute pancreatitis. I spoke to Dr. Jasmine who refused to admit patient due to his last hospital visit where he left AGAINST MEDICAL ADVICE. I reviewed patient's chart from his previous ER visit and he appeared to be very demanding requesting Dilaudid and alprazolam. Patient recently filled a prescription for alprazolam. He appears to be visiting this hospital as well as [facility] based off of his [place] record. Patient to be discharged home to follow-up with his primary care provider tomorrow. Patient given follow-up information on a primary care pr ovider if he does not have 1. Discharge vitals stable. I discussed with patient all findings and diagnostic testing as well as the need to follow-up with PCP for further evaluation and treatment or return to the ER if any new or worsening symptoms. Strict return precautions were also discussed at length. Patient voiced understanding and agreement with the plan. Patient is hemo dynamically stable at the time of disposition. (JANET LONDONO APRN) Course & Med Decision Making I was the Attending physician on the above date of service of this patient. This patient was evaluated, examined, treated, and dispositioned from the emergency department by the mid-level practitioner. Although I was working at the time , no assistance was requested. Electronically signed, Silas Mueller DO (SILAS MUELLER DO) Shaneka Disclaimer: Shaneka Disclaimer: This electronic medical record was generated, in whole or in part, using a voice recognition dictation system. (JANET LONDONO APRN) Departure Departure: Impression: Primary Impression: Pancreatitis Qualified Codes: K86.0 - Alcohol-induced chronic pancreatitis Disposition: HOME / SELF CARE / HOMELESS Condition: GOOD Referrals: PCP,BENNY (PCP) MALINA GARCIA Patient Instructions: Acute Pancreatitis Additional Instructions: You were seen in the ER today for abdominal pain your work-up in the ER showed chronic pancreatitis. You were treated with pain management in the ER. Please stay n.p.o. and you can drink clear fluids today. Avoid spicy, greasy or fatty foods. You need to follow-up with your primary care provider tomorrow regarding your ER visit. If you do not have a primary care provider you can follow-up with the primary care provider that was attached to this discharge paperwork. If you develop worsening of your abdominal pain, intractable nausea or vomiting, blood in your stools or vomit, high fevers refractory to treatment, chest pain, shortness of breath or any new or worsening concerns please return to the ER. EMERGENCY DEPARTMENT GENERAL DISCHARGE INSTRUCTIONS Thank you for coming to [facility] (ED) today and trusting us with you care. We trust that you had a positivie experience in our Emergency Department. If you wish to speak to the department management, you may call the director at [phone]. YOUR FOLLOW UP INSTRUCTIONS ARE FOLLOWS: 1. Do you have a private Doctor? If you do not have a private doctor, please ask for a resource list of physicians or clinics that may be able to assist you with follow up care. 2. The Emergency Physician has interpreted your x-rays. The X-Ray specialist will also review them. If there is a change in the findings, you will be notified in 48 hours when at all possible. 3. A lab test or culture has been done, your results will be reviewed and you will be notified if you need a change in treatment. ADDITIONAL INSTRUCTIONS AND INFORMATION: 1. Your care today has been supervised by a physician who is specially trained in emergency care. Many problems require more than one evaluation for a complete diagnosis and treatment. We recommend that you schedule your follow up appointment as recommended to ensure complete treatment of you illness or injury. If you are unable to obtain follow up care and continue to have a problem, or if your condition worsens, we recommend that you return to the ED. 2. We are not able to safely determine your condition over the phone nor are we able to give sound medical advice over the phone. For these safety reasons, if you call for medical advice we will ask you to come to the ED for further evaluation. 3. If you have any questions regarding these discharge instructions please call the ED at [phone]. SAFETY INFORMATION: In the interest of safety, wellness, and injury prevention; we encourage you to wear your sealbelt, if you smoke; quite smoking, and we encourage family to use a protective helmet for bicycling and other sporting events that present an increased risk for head injury. IF YOUR SYMPTOMS WORSEN OR NEW SYMPTOMS DEVELOP, OR YOU HAVE CONCERNS ABOUT YOUR CONDITION; OR IF YOUR CONDITION WORSENS WHILE YOU ARE WAITING FOR YOUR FOLLOW UP APPOINTMENT; EITHER CONTACT YOUR PRIMARY CARE DOCTOR, THE PHYSICIAN WHOSE NAME AND NUMBER YOU WERE GIVEN, OR RETURN TO THE ED IMMEDIATELY. JANET LONDONO APRN Apr 29, 2021 11:49 SILAS MUELLER DO Apr 30, 2021 06:51
[2021-04-29 11:52] LABS: ALBUMIN 3.6 g/dL (3.4-5.0); ALBUMIN/GLOBULIN RATIO 1.1 (1.0-1.7); TOTAL PROTEIN 6.8 g/dL (6.4-8.2)
--- NOTE | 2021-04-29 12:04 | EKG ---
[address] [address] Test Date: 2021-04-29 Test Time: 11:43:09 Pat Name: BROOKS DURÁN Department: Room: Gender: M Checker Product Design: margie user : [id number] Requested By: JANET LONDONO Order Number: [id number] Reading MD: Measurements Intervals [place] Rate: 82 P: 26 KS: 128 QRS: 80 QRSD: 82 T: 34 QT: 370 QTc: 435 Interpretive Statements SINUS RHYTHM T ABNORMALITY IN ANTERIOR LEADS ABNORMAL ECG RI6.02 No previous ECG available for comparison
--- NOTE | 2021-04-29 12:31 | RAD ---
CT ABDOMEN+PELVIS W History: History of pancreatitis. Epigastric pain. Comparison: CT abdomen and pelvis 04/10/2021 Technique: CT abdomen and pelvis with intravenous contrast Findings: The lung bases are clear. Visualized heart is unremarkable. The liver, gallbladder, spleen, adrenals, and kidneys are unremarkable. Pancreatic atrophy with innumerable tiny calcifications in the head, uncinate and body. Atrophic body and tail. Fat stranding adjacent to the pancreatic head and uncinate. No discrete peripancreatic flu id collections. Stomach is well distended. There is wall thickening of the duodenum likely related to adjacent inflam matory changes in the pancreatic head. Small bowel is otherwise unremarkable. Normal appendix. Unrema rkable colon. No adenopathy. Minimal aortic calcification. Bladder and prostate are unremarkable. Soft tissues are within normal limits. No acute findings in the spine and skeletal structures. Impression: 1. Evidence of chronic pancreatitis and atrophy with peripancreatic head edema consistent with super imposed acute pancreatitis. No abscess or pseudocyst identified. ------ Exposure: One or more of the following individualized dose reduction techniques were utilized for thi s examination: 1. Automated exposure control 2. Adjustment of the mA and/or kV according to patient size 3. Use of iterative reconstruction technique. Electronically signed by: Buck Anand MD (04/29/2021 12:29 PM) [id number]
[2021-04-29 13:05] VITALS: BP 141/92
[2021-04-29 13:08] LABS: BARBITURATES NEG (NEG); BENZODIAZEPINES NEG (NEG); CANNABINOIDS POS (NEG); COCAINE NEG (NEG); METHADONE NEG (NEG); OPIATES NEG (NEG); PHENCYCLIDINE NEG (NEG)
[2021-04-29 13:11] LABS: AMPHETAMINE/METHAMPHETAMINE NEG (NEG)
[2021-04-29 13:13] LABS: BACTERIA,URINE 0 /HPF (0-FEW); BILIRUBIN,URINE NEG (NEG); CLARITY,URINE CLEAR; COLOR,URINE YELLOW; GLUCOSE,URINE NEG (NEG); NITRITE,URINE NEG (NEG); RBC,URINE 0 /HPF (0-2); SQUAMOUS EPITHELIAL CELL,UR FEW /LPF; UROBILINOGEN,URINE 0.2 mg/dL (0.2 mg/dL); WBC,URINE 0 /HPF (0-4)
== END 2021-04-29 13:23 | disposition home or self-care (01) ==
LOC: ER 11:10
DX: K86.0 Alcohol-induced chronic pancreatitis (principal); K21.9 Gastro-esophageal reflux disease without esophagitis; F10.20 Alcohol dependence, uncomplicated; Y90.0 Blood alcohol level of less than 20 mg/100 ml
CPT/HCPCS: 36415; 74177; 80053; 80307; 81001; 83690; 84484; 85025; 93005; 96361; 96374; 96375; 96376; 99285; J2405; J3010; J7030; Q9967

== ENCOUNTER 2021-05-15 07:05 | Emergency (ER) | payer SELFPAY ==
[~2021-05-15] VITALS: Ht 172.7 cm; Wt 75.4 kg
[2021-05-15] MEDS ORDERED: DEXAMETHASONE SOD PHOS 10 MG/ML VIAL. IM ONE (07:15)
[2021-05-15] MEDS ORDERED: diphenhydrAMINE HCL 25 MG CAPSULE PO ONE (07:15)
[2021-05-15] MEDS ORDERED: FAMOTIDINE 20 MG TABLET PO ONE (07:15)
[2021-05-15] MEDS ORDERED: DEXAMETHASONE SOD PHOS 10 MG/ML VIAL. ONE (07:27)
[2021-05-15] MEDS ORDERED: FAMO-63 PO (07:36)
[2021-05-15] MEDS ORDERED: PRED20TA PO (07:36)
[2021-05-15] MEDS ORDERED: DIPH25CA58 PO (07:36)
--- NOTE | 2021-05-15 07:36 | PHYS DOC ---
Past History Past Medical History: Alcoholism, GERD, Pancreatitis Past Surgical History: No Surgical History Smoking: Non-smoker Alcohol Use: Occasionally Drug Use: None General Adult EDM: Chief Complaint: ALLERGIC REACTION HPI: HPI: 40-year-old male presents with lip swelling upon waking this morning at 0400. Reports he thinks it is secondary to eating guacamole on a [employer] burrito last night around 1 AM. 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 Patient reports he has had avocado and limited quantities previously without significant reaction. Patient reports there was a large amount of guacamole on his burrito. Patient denies any tongue swelling or difficulty breathing. Reports upon waking he did take an [id number] "allergy "pill. Denies shortness of breath. Patient does report use of lisinopril which she was recently started on. Reports he took in the hospital for the last 5 days. Review of Systems: Review of Systems: Constitutional: Denies fever or chills Eyes: Denies redness or eye pain HENT: Denies nasal congestion or tongue swelling; reports lip swelling Respiratory: Denies cough or shortness of breath Cardiovascular: Denies chest pain or palpitations GI: Denies abdominal pain, nausea, or vomiting : Denies dysuria or hematuria Musculoskeletal: Denies back pain or joint pain Integument: Denies rash or skin lesions Neurologic: Denies headache, focal weakness or sensory changes Complete systems were reviewed and found to be within normal limits, except as documented in this note. Current Medications: Current Meds: Current Medications Medications (Trade) Dose Ordered Sig/[facility] Start Time Stop Time Status Last Admin Dose Admin Dexamethasone Sodium Phosphate (Decadron) 10 mg STK-MED ONCE 05/15/21 07:27 05/15/21 07:27 DC Diphenhydramine HCl (Benadryl) 50 mg 1X ONCE 05/15/21 07:15 05/15/21 07:27 DC 05/15/21 07:31 50 MG Famotidine (Pepcid) 20 mg 1X ONCE 05/15/21 07:15 05/15/21 07:27 DC 05/15/21 07:30 20 MG Allergies: Allergies: Allergies Coded Allergies Type Severity Reaction Last Updated Verified No Known Drug Allergies 04/10/21 No Physical Exam: PE: Constitutional: Well developed, well nourished, no acute distress, non-toxic appearance HENT: Normocephalic, atraumatic, tongue normal, no pooling of secretions Eyes: Conjunctiva normal, no discharge Neck: Normal range of motion, supple Lungs & Thorax: No respiratory distress, equal chest rise and fall, no stridor Abdomen: Soft, no tenderness Skin: Warm, dry, no erythema, significant edema to upper > lower lips Extremities: No tenderness, ROM intact, no edema Neurologic: Alert and oriented X 3, no focal deficits noted Psychologic: Affect normal, judgment normal EKG: EKG: [] Radiology/Procedures: Radiology/Procedures: [] Heart Score: C/O Chest Pain: N/A Course & Med Decision Making: Course & Med Decision Making Patient presents with report of lip swelling upon waking this morning at 0400. Patient concerned might be secondary to food allergy to avocados as patient just previously had eaten a burrito with a large amount of guacamole on it at 0100. Patient reports he did take a allergy pill upon waking. Reports swelling continued and therefore patient presents to the ER. No signs of airway compromise noted. Tongue appears normal. Patient does take lisinopril. Patient advised symptoms may be secondary to lisinopril however can also be explained by a food allergy. Patient advised to refrain from avocado use and to discuss with his doctors regarding continued lisinopril use. Symptomatic IM dexamethasone, p.o. Pepcid, and p.o. Benadryl provided. Vital signs stable. Patient stable for discharge with outpatient follow-up with PCP. Discussed findings and plan with patient and spouse, who acknowledge understanding and agreement. Shaneka Disclaimer: Shaneka Disclaimer: This electronic medical record was generated, in whole or in part, using a voice recognition dictation system. Departure Departure: Impression: Primary Impression: Angioedema Qualified Codes: T78.3XXA - Angioneurotic edema, initial encounter Disposition: HOME / SELF CARE / HOMELESS Condition: STABLE Referrals: PCP,NO (PCP) Patient Instructions: Angioedema, [id number], Food Allergy, [id number]-[id number] Additional Instructions: Discontinue eating guacamole or anything with avocado Scripts Famotidine (PEPCID) 20 Mg Tablet 1 TAB PO BID for Allergic Reaction for 5 Days, #10 TAB Prov: MINA NOEL DO 05/15/21 Diphenhydramine Hcl (BENADRYL) 25 Mg Capsule 1 CAP PO Q4-6HRS PRN for RASH, #30 CAP 0 Refills Prov: MINA NOEL DO 05/15/21 Prednisone (PREDNISONE) 20 Mg Tablet 2 TAB PO DAILY for Allergic Reaction, #8 TAB Start this prescription tomorrow, 05/16/21 Prov: MINA NOEL DO 05/15/21 MINA NOEL DO May 15, 2021 07:36
[2021-05-15 07:51] VITALS: BP 138/80
== END 2021-05-15 07:46 | disposition home or self-care (01) ==
LOC: ER 07:05
DX: T78.3XXA Angioneurotic edema, initial encounter (principal); K21.9 Gastro-esophageal reflux disease without esophagitis; F10.20 Alcohol dependence, uncomplicated; Y90.9 Presence of alcohol in blood, level not specified
CPT/HCPCS: 96372; 99283; J1100; Q0163

== ENCOUNTER 2021-06-27 18:05 | Inpatient (IN) | payer SELFPAY ==
[~2021-06-27] VITALS: Ht 175.3 cm; Wt 74.2 kg
[~2021-06-27 18:05] MED LIST changes: +DIPH25CA58 PO; +FAMO-63 PO; +PRED20TA PO
--- NOTE | 2021-06-27 18:31 | PHYS DOC ---
Past History Past Medical History: Alcoholism, GERD, Pancreatitis Past Surgical History: No Surgical History Smoking: Non-smoker Alcohol Use: Occasionally Drug Use: None Adult General HPI HPI Patient is a 41-year-old male with a past medical history significant for alcoholism and pancreatitis who presents with a chief complaint of epigastric pain, 8 out of 10, sharp and burning in nature, with some radiation to the back associated with nausea and nonbilious nonbloody vomiting this been going on for about a day. States he drank a lot of alcohol yesterday, started having the pain in the evening and has not really had anything to eat or drink since then. Review of Systems Review of Systems Review of systems otherwise unremarkable except noted in HPI Allergies Allergies Allergies Coded Allergies Type Severity Reaction Last Updated Verified No Known Drug Allergies 04/10/21 No Physical Exam Physical Exam Constitutional: Well developed, well nourished, no acute distress, non-toxic appearance. [] HENT: Normocephalic, atraumatic, oropharynx dry, no oral exudates, nose normal. [] Eyes: conjunctiva normal, no discharge. [] Neck: Normal range of motion, no tenderness, supple, no stridor. [] Cardiovascular: Sinus tachycardia Lungs & Thorax: Bilateral breath sounds clear to auscultation [] Abdomen: soft, epigastric tenderness, no rebound, no guarding, no masses, no pulsatile masses. [] Skin: Warm, dry, no erythema, no rash. [] Back: No tenderness, no CVA tenderness. [] Extremities: No tenderness, no cyanosis, no clubbing, ROM intact, no edema. [] Neurologic: Alert and oriented X 3, no focal deficits noted. [] Psychologic: Affect normal, judgement normal, mood normal. [] EKG EKG [] Radiology/Procedures Radiology/Procedures [] Heart Score C/O Chest Pain: No Risk Factors: Risk Factors: DM, Current or recent (<one month) smoker, HTN, HLP, family history of CAD, obesity. Risk Scores: Risk Factors: DM, Current or recent (<one month) smoker, HTN, HLP, family h istory of CAD, obesity. Course & Med Decision Making Course & Med Decision Making Patient is a 41-year-old male presents with a chief complaint of epigastric pain, and last alcoholic beverage yesterday Vital signs notable for sinus tachycardia. Physical exam noted above. Patient placed on the monitor with IV access established and IV fluid given. Given nausea and pain medicine. Laboratory analysis not concerning. CT notable for acute on chronic pancreatitis. Discussed all findings with patient and recommended admission for continued evaluation and treatment of his pancreatitis. Made n.p.o. Started on IV fluid resuscitation, pain medicine and nausea medicine. Discussed patient with Dr. Garcia who accepted to [facility]. Dragon Disclaimer Dragon Disclaimer This electronic medical record was generated, in whole or in part, using a voice recognition dictation system. Departure Departure: Impression: Primary Impression: Pancreatitis Disposition: ADMITTED INPATIENT Admitting Physician: Robi Garcia Condition: IMPROVED Referrals: PCP,BENNY (PCP) TELLY NORMAN MD Jun 27, 2021 18:31
[2021-06-27] MEDS ORDERED: IV RINGERS SOLUTION,LACTATED 1,000 ML IV ONE (19:00)
[2021-06-27] MEDS ORDERED: IOHEXOL 300 MG/ML 75 ML VIAL. IV ONE (19:00)
[2021-06-27] MEDS ORDERED: ONDANSETRON PF 4 MG/2 ML VIAL. IVP ONE (19:00)
[2021-06-27 19:41] LABS: BASO % 1 % (0-3); EOS % 1 % (0-3); HEMATOCRIT 42.2 % (39.0-53.0); HEMOGLOBIN 14.3 g/dL (13.0-17.5); LYMPH # 1.4 x10^3/uL (1.0-4.8); LYMPH % 20 % (24-48); MEAN CORPUSCULAR HEMOGLOBIN 33 pg (25-35); MEAN CORPUSCULAR HGB CONC 34 g/dL (31-37); MEAN CORPUSCULAR VOLUME 98 fL (79-100); MONO # 0.4 x10^3/uL (0.0-1.1); MONO % 6 % (0-9); NEUT % 73 % (31-73); PLATELET COUNT 234 x10^3/uL (140-400); RED BLOOD COUNT 4.32 x10^6/uL (4.30-5.70); RED CELL DISTRIBUTION WIDTH 13.6 % (11.5-14.5); WHITE BLOOD COUNT 6.8 x10^3/uL (4.0-11.0)
[2021-06-27 19:48] LABS: CALCIUM 8.4 mg/dL (8.5-10.1); CREATININE 0.7 mg/dL (0.7-1.3); GFR 124.3; POTASSIUM 3.5 mmol/L (3.5-5.1)
[2021-06-27 19:53] LABS: ALBUMIN 3.8 g/dL (3.4-5.0); ALBUMIN/GLOBULIN RATIO 1.1 (1.0-1.7); TOTAL BILIRUBIN 0.7 mg/dL (0.2-1.0); TOTAL PROTEIN 7.3 g/dL (6.4-8.2)
--- NOTE | 2021-06-27 20:18 | RAD ---
CT abdomen and pelvis with contrast PQRS statement: CT scans at this facility use dose reduction including either automated exposure cont rol, iterative reconstructions, and /or weight based radiation dosing via mA and kV modification when appropriate to reduce radiation dose to as low as reasonably achievable. HISTORY: Epigastric abdominal pain. Pancreatitis. Contrast: 75 mL Omnipaque 300 intravenous contrast. COMPARISON: Pelvis April 25, 2021 Abdomen findings: Hypodensity liver likely fatty. Kidneys, adrenals, spleen and gallbladder are unrem arkable. There are eccentric calcifications at the head and body of pancreas and marked atrophy of th e tail the pancreas consistent with chronic pancreatitis, there is edema and enlargement of the head of pancreas similar to prior imaging. There is increased biliary ductal dilation of the intrahepatic and intrahepatic ducts leading up to the head of pancreas which has mildly progressed compared to kareem or studies. There is edema which also surrounds the first and second segment of the duodenum adjacent of the pancreas. No bowel obstruction. Appendix is negative. Mild calcified plaque of the aorta. No abdominal fluid or fluid collection. No adenopathy. Pelvis findings: No pelvic fluid or adenopathy. Bladder, prostate, rectum and bones are unremarkable. IMPRESSION: 1. Acute on chronic pancreatitis with extensive calcifications of the pancreas and atrophy of the yanick l, with edema and enlargement of the head of pancreas similar to prior imaging. There is increased bi liary ductal dilation since prior imaging likely due to a stricture of the common bile duct at the he ad of the pancreas. The enlargement of the head of pancreas and the common duct stricture could be du e to increasing acute pancreatitis inflammatory changes of the head of the pancreas versus a poorly d efined malignant mass of the head, the margins of which are ill-defined by the superimposed inflammat ory changes. 2. Appendix is negative. Electronically signed by: Shamar Bejarano MD (06/27/2021 8:16 PM) [facility]
[2021-06-27] MEDS ORDERED: ONDANSETRON PF 4 MG/2 ML VIAL. IVP PRN (20:30)
[2021-06-27] MEDS ORDERED: IV DEXTROSE 5%-LACT RINGERS 1,000 ML IV ONE (20:30)
[2021-06-27] MEDS ORDERED: MORPHINE SULFATE 4 MG/ML DISP.SYRIN. IV ONE (20:30)
[2021-06-27 20:38] LABS: BACTERIA,URINE 0 /HPF (0-FEW); BILIRUBIN,URINE NEG (NEG); CLARITY,URINE CLEAR; COLOR,URINE YELLOW; GLUCOSE,URINE NEG (NEG); NITRITE,URINE NEG (NEG); RBC,URINE 0 /HPF (0-2); SQUAMOUS EPITHELIAL CELL,UR OCC /LPF; UROBILINOGEN,URINE 0.2 mg/dL (0.2 mg/dL); WBC,URINE OCC /HPF (0-4)
[2021-06-27 22:10] VITALS: BP 128/76
--- NOTE | 2021-06-27 22:10 | NUR ---
Pt admitted from ER to [facility] room 117 via rney, accompanied by EMS and nursing staff. Pt ambulated from gurney to bed independently, steady gait noted. Admission assessment completed. VSS. Pt here for c/o Abd. pain and Pancreatitis. Pt stated that "this has happened before...I went on a 4 day drinking spell and well...here I am...it was stupid." Pt stated that his last drink was at 0200 today. Health history and home medications reviewed with pt. Pt denies taking any home medications. Pt had one dose of Moderna vaccine and refused Flu vaccine. CM consult placed. Pt lives at home with his mother. POC reviewed with pt, understanding verbalized. Pt was given written information regarding hospital policies, unit procedures and contact persons. Valuables were checked and left at bedside. Pt is NPO. Covid PCR pending still. CIWA assessment Q4 hrs with Ativan PRN if indicated per score.
[2021-06-27] MEDS: MULTIVITAMIN with MINERAL TABLET. PO SCH (22:13)
[2021-06-27] MEDS: MORPHINE SULFATE 4 MG/ML DISP.SYRIN. IVP PRN (23:17)
[2021-06-28] MEDS: MORPHINE SULFATE 4 MG/ML DISP.SYRIN. IVP PRN ×4 (03:08→15:35)
[2021-06-28 03:10] VITALS: BP 142/89
[2021-06-28 05:15] VITALS: BP 147/93
[2021-06-28] MEDS: MULTIVITAMIN with MINERAL TABLET. PO SCH (08:11)
[2021-06-28 09:51] LABS: BASO % 1 % (0-3); EOS % 0 % (0-3); HEMATOCRIT 37.2 % (39.0-53.0); HEMOGLOBIN 12.6 g/dL (13.0-17.5); LYMPH # 0.9 x10^3/uL (1.0-4.8); LYMPH % 18 % (24-48); MEAN CORPUSCULAR HEMOGLOBIN 33 pg (25-35); MEAN CORPUSCULAR HGB CONC 34 g/dL (31-37); MEAN CORPUSCULAR VOLUME 98 fL (79-100); MONO # 0.4 x10^3/uL (0.0-1.1); MONO % 8 % (0-9); NEUT # 3.9 x10^3uL (1.8-7.7); NEUT % 74 % (31-73); PLATELET COUNT 172 x10^3/uL (140-400); RED BLOOD COUNT 3.81 x10^6/uL (4.30-5.70); RED CELL DISTRIBUTION WIDTH 13.5 % (11.5-14.5); WHITE BLOOD COUNT 5.2 x10^3/uL (4.0-11.0)
[2021-06-28 10:51] VITALS: BP 123/84
[2021-06-28 14:57] VITALS: BP 132/77
[2021-06-28] MEDS ORDERED: OXYC5TAB4 PO (15:39)
--- NOTE | 2021-06-28 16:13 | SSS ---
DATE OF SERVICE: 06/28/2021 ADMIT DATE: 06/27/2021 HISTORY OF PRESENT ILLNESS: The patient is a 41-year-old male patient who yet again came to the Emergency Room with the complaint of epigastric pain that is 8/10 in severity, sharp and burning in nature with some radiation to the back, associated with nausea and nonbilious, nonbloody vomiting, has been going on for about a day. He states he drank a lot of alcohol the day before yesterday, started having the pain in the evening and has not really had anything to eat or drink since then. He was extensively investigated and has had lab work including a CBC, which was unremarkable. His chemistry also was unrevealing. For some reason, toxic screen was not done, so no blood alcohol level was measured. His serum lipase was only 152. The patient was admitted and kept n.p.o., started on IV fluids, IV pain medication, antiemetic. PAST MEDICAL HISTORY: Significant for multiple admissions for alcoholism and pancreatitis. PAST SURGICAL HISTORY: Unremarkable. FAMILY HISTORY: Noncontributory. SOCIAL HISTORY: He lives with his mom. He apparently does not smoke. He continued to drink alcohol heavily. REVIEW OF SYSTEMS: As per history of present illness. MEDICATIONS: He is on no medication at home. ALLERGIES: Has had no known drug allergies. PHYSICAL EXAMINATION: GENERAL: On arrival to the Emergency Room, he looked well and was clearly in no apparent respiratory distress. There was definitely no pallor, jaundice, cyanosis or thyromegaly. No jugular venous distention. No lower limb edema. VITAL SIGNS: His heart rate is 86, blood pressure is 142/88, temperature was 98.9, respiratory rate was 16 and oxygen saturation was 96%. HEAD, EYES, EARS, NOSE, AND THROAT: Showed normocephalic, atraumatic. NECK: Supple. HEART: Normal first and second heart sounds. No gallop, rub, or murmur. CHEST: Showed central trachea, equal bilateral chest expansion, air entry, vesicular breath sounds. No crepitation or rhonchi. ABDOMEN: Soft with mild epigastric tenderness. No rebound, no guarding or rigidity. No organomegaly. All hernial orifice intact. Bowel sounds normal. NEUROLOGIC: He was alert and oriented x 3, with no focal deficit. His affect, judgment and mood were normal. LABORATORY DATA: His lab work on arrival showed a white cell count of 6800, hemoglobin 14, hematocrit 42, MCV 98 and platelet count 234,000. Serum sodium was 144, potassium 3.5, chloride 105, bicarbonate 24, anion gap of 15, BUN 11, creatinine was 0.7. Estimated GFR was 124 mL per minute. His glucose was 105, calcium was 8.4. His total bilirubin is normal. AST, ALT, alkaline phosphatase are slightly elevated. Total protein is 7.3, albumin 3.8. Initial lipase was 152. His urinalysis was essentially unremarkable, and his coronavirus by PCR was negative. ASSESSMENT AND PLAN: The patient was admitted, started on IV fluid, IV morphine and Ativan as well as multivitamin. The patient did well, has been up and about, and his lab work repeated this morning showed that his serum lipase was down to 86. We did start him on a regular diet that he has tolerated and a decision was made to discharge him home. I did advise him to quit alcohol as a CT scan of the abdomen and pelvis showed that he has chronic pancreatitis with extensive calcification of the pancreas and atrophy of the tail with edema and enlargement of the head of the pancreas similar to prior imaging. There is increased biliary ductal dilatation since prior imaging, likely due to a stricture of the common bile duct at the head of the pancreas. The enlargement of the head of the pancreas and the common duct stricture could be due to increasing acute pancreatitis, inflammatory changes of the head of the pancreas. There is a poorly defined malignant mass in the head of the pancreas, the margins of which are ill-defined. I did emphasize that the patient should get the primary care physician to follow up with and I emphasized the need for him to quit drinking alcohol. FINAL DISCHARGE DIAGNOSES: 1. Vsyuq-tc-[id number] pancreatitis. 2. Alcoholism. TALON/BREN DR: Lona TID: [id number]
--- NOTE | 2021-06-28 16:26 | NUR ---
VSS. NADN. Pt tolerating snacks and water. Morphine and ativan given for pain and withdrawals PRN. Discharge orders placed. IV discontinued. Prescription for oxycodone sent to [facility] pharmacy for outpatient pain control. Pt discharged home with all belongings @ [id number].
== END 2021-06-28 16:20 | disposition home or self-care (01) | DRG 440 ==
LOC: ER 18:05 → 1 SOUTH 20:21
PROVIDERS: ADMIT Internal Medicine; ATTEND Internal Medicine
DX: K85.90 Acute pancreatitis without necrosis or infection, unspecified (principal); K21.9 Gastro-esophageal reflux disease without esophagitis; F10.20 Alcohol dependence, uncomplicated; K86.1 Other chronic pancreatitis; Z20.822 Contact with and (suspected) exposure to COVID-19
CPT/HCPCS: 36415; 74177; 80053; 81001; 83690; 85025; 87426; 96361; 96365; 96375; J2060; J2270; J2405; J3010; J7120; Q9967; U0003; 99285-25